=== PATIENT | male | born 1985 ===

== ENCOUNTER → 2017-09-22 | Outpatient (CLI) | payer OTHER ==
[~2017-09-22] MED LIST: LRT5 PO; OXYC-57 PO
--- NOTE | 2017-09-26 10:28 | CODING QUERY NO DIAGNOSIS ---
: 1985 TREATMENT RENDERED WITHOUT A DIAGNOSIS To promote full compliance with coding requirements relating to patient care, physician participation is requested in all cases of cpc coder uncertainty. Please assist us with providing a diagnosis/symptom for the test(s) below: A diagnosis/symptom was not documented on your Order. A valid diagnosis/symptom is required to bill all insurances. Please remember that we are unable to code a diagnosis of rule out, probable, possible, questionable, or suspected. Tests that require a diagnosis: DOS: 09/22/17 * KAREN LEVEL DIAGNOSIS: Provider Signature: Date: Thank you Laquita [facility] Once completed, please kindly fax back to [phone] For questions please call [phone]
== END | disposition home or self-care (01) ==
LOC: C.LAB 05:40
DX: Z02.83 Encounter for blood-alcohol and blood-drug test (principal)